=== PATIENT | female | born 1985 | race Caucasian/White ===

== ENCOUNTER 2022-02-07 21:21 | Emergency (ER) | payer MEDICAID ==
[~2022-02-07] VITALS: Ht 152.4 cm; Wt 96.4 kg
--- NOTE | 2022-02-07 21:50 | NUR ---
Pt is here today post fall from ladder at 1530 today c/o left hip pain
[2022-02-07] MEDS ORDERED: ketorolac trometh inj. 60 MG/2 ML VIAL IM ONE (22:35)
[2022-02-07] MEDS ORDERED: ondansetron 4mg rapidly disintigrating tab PO ONE (22:35)
[2022-02-07] MEDS ORDERED: HYDROcodone/acetaminophen 5mg/325mg tablet PO ONE (22:35)
[2022-02-07] MEDS ORDERED: HYDR-3965 PO (22:36)
[2022-02-07 23:02] VITALS: BP 132/78
== END 2022-02-07 23:04 | disposition home or self-care (01) ==
LOC: ER 21:23
DX: M25.552 Pain in left hip (principal); Z88.5 Allergy status to narcotic agent
CPT/HCPCS: 73502; 96372; 99284; J1885